=== PATIENT | female | born 1995 | race Caucasian/White ===

== ENCOUNTER 2016-09-29 15:49 | Emergency (ER) | payer SELFPAY ==
[~2016-09-29] VITALS: Ht 160 cm; Wt 55.0 kg
[~2016-09-29 15:49] MED LIST: BACT800T5 PO
[2016-09-29 15:50] VITALS: BP 137/77; PULSE 70; RESP 20; TEMP 98.6; O2SAT 99
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
[2016-09-29 17:11] LABS: AUTOMATED NEUTROPHIL # 2.5 TH/MM3 (1.8-7.7); BASOPHIL % 0.5 % (0.0-2.0); EOSINOPHIL % 0.4 % (0.0-4.0); HEMATOCRIT 42.7 % (35.0-46.0); HEMO FLAGS DIFF FINAL; LYMPH % 45.2 % (9.0-44.0); LYMPHOCYTE # 2.3 TH/MM3 (1.0-4.8); MEAN CELL VOLUME 90.9 FL (80.0-100.0); MEAN CORPUSCULAR HEMOGLOBIN 30.2 PG (27.0-34.0); MEAN CORPUSCULAR HGB CONC 33.2 % (32.0-36.0); MONO % 6.6 % (0.0-8.0); NEUT % 47.3 % (16.0-70.0); PLATELET COUNT 284 TH/MM3 (150-450); RED CELL DISTRIBUTION WIDTH 13.7 % (11.6-17.2); WHITE BLOOD COUNT 5.2 TH/MM3 (4.0-11.0)
[2016-09-29 17:21] LABS: BICARBONATE 25.8 MEQ/L (21.0-32.0); MAGNESIUM 2.2 MG/DL (1.5-2.5); POTASSIUM 3.9 MEQ/L (3.5-5.1)
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
--- NOTE | 2016-09-29 20:19 | RADRPT ---
EXAM DATE/TIME: 09/29/2016 20:09 [place] COMPARISON: No previous studies available for comparison. INDICATIONS : Possible seizure activity. RADIATION DOSE: 29.55 CTDIvol (mGy) MEDICAL HISTORY : None SURGICAL HISTORY : None. ENCOUNTER: Initial ACUITY: 1 day PAIN SCALE: 0/10 LOCATION: cranial TECHNIQUE: Multiple contiguous axial images were obtained of the head. Using automated exposure control and adj ustment of the mA and/or kV according to patient size, radiation dose was kept as low as reasonably a chievable to obtain optimal diagnostic quality images. DICOM format image data is available electro nically for review and comparison. FINDINGS: CEREBRUM: The ventricles are normal for age. No evidence of midline shift, mass lesion, hemorrhage or acute in farction. No extra-axial fluid collections are seen. POSTERIOR FOSSA: The cerebellum and brainstem are intact. The 4th ventricle is midline. The cerebellopontine angle i s unremarkable. EXTRACRANIAL: The visualized portion of the orbits is intact. SKULL: The calvaria is intact. No evidence of skull fracture. CONCLUSION: Negative for an acute process. Curtis Hoover MD FACR on September 29, 2016 at 20:17 Board Certified Radiologist. This report was verified electronically.
[2016-09-29] MEDS ORDERED: DEPO150I IM (20:39)
[2016-09-29 21:47] VITALS: BP 123/58
--- NOTE | 2016-09-30 09:49 | EKG ---
Date Performed: 09/29/2016 Time Performed: 16:13:46 PTAGE: 20 years EKG: Sinus rhythm NONSPECIFIC T-WAVE ABNORMALITY BORDERLINE ECG NO PREVIOUS TRACING DOCTOR: Asif Leonard Interpretating Date/Time 09/30/2016 09:47:12
== END 2016-09-29 21:58 | disposition home or self-care (01) ==
LOC: NEPD 15:49
DX: R56.9 Unspecified convulsions (principal); R94.31 Abnormal electrocardiogram [ECG] [EKG]
CPT/HCPCS: 70450; 80048; 83735; 84703; 85025; 93005; 99285

== ENCOUNTER 2016-10-18 18:18 | Emergency (ER) | payer SELFPAY ==
[~2016-10-18 18:18] MED LIST changes: -BACT800T5 PO; +DEPO150I IM
[2016-10-18 18:22] VITALS: BP 134/63; PULSE 88; RESP 18; TEMP 98.8; O2SAT 99
[2016-10-18] MEDS ORDERED: PENI500T PO (18:43)
[2016-10-18] MEDS ORDERED: PERI0.126 SWISH-SPIT (18:43)
[2016-10-18] MEDS ORDERED: IBUP-232 PO (18:43)
--- NOTE | 2016-10-18 18:43 | PD ---
HPI Chief Complaint: Oral / Dental Pain or Problem Time Seen by Provider: 18:28 Travel History International Travel<30 days: No Contact w/Intl Traveler<30days: No Traveled to known affect area: No History of Present Illness HPI The patient is a 21-year-old female who presents emergency department for dental pain. The patient complains of dental pain located in the left upper aspect of the mouth. The patient states she's had dental difficulties of the last several years, has a filling in the affected tooth. The patient states she has difficulty chewing on the affected side secondary to pain and notes mild swelling along the left upper gumline. She denies any heat or cold sensitivity. The patient states she saw a dentist yesterday, however, was unable to afford the copayment, therefore, was unable to get any prescriptions for the infected tooth. The patient also complains of a rash over the medial aspect the arms bilateral and along the waistline. She denies any pruritus to the affected area and denies any known contact new items or recent change in medications, lotions, or shampoos. The patient denies any shortness of breath or swelling of the tongue. Symptoms are mild, possibly exacerbated by an underlying infection, and there are no current alleviating factors. PFSH Past Medical History Hx Anticoagulant Therapy: No Diabetes: No Diminished Hearing: No Immunizations Current: Yes ?: Not LMP: 09/03/16 Social History Alcohol Use: No Tobacco Use: No Substance Use: No Allergies-Medications (Allergen,Severity, Reaction): Coded Allergies: No Known Allergies (Unverified , 10/18/16) Reported Meds & Prescriptions Reported Meds & Active Scripts Active Reported Depo-Provera Inj (Medroxyprogesterone Inj) 150 Mg/Ml Inj 150 Mg IM Q90D Review of Systems Except as stated in HPI: all other systems reviewed are Neg General / Constitutional: No: Fever HENT: Positive: Dental Difficulties Skin: Positive Rash, No Itching Physical Exam Narrative GENERAL: Awake, alert, nontoxic-appearing 21-year-old female who appears her stated age and is in no acute respiratory distress. SKIN: Focused skin assessment warm/dry. Patient has 2 small erythematous lumps on the left upper extremity, 1 on the right upper extremity that are less than 0.5 cm in diameter, nonblanching. Patient also has 3 discrete similar lesions along the waistline. They do not robert. There is no visible vesicle. HEAD: Atraumatic. Normocephalic. EYES: Pupils equal and round. No scleral icterus. No injection or drainage. ENT: No nasal bleeding or discharge. Mucous membranes pink and moist. Inspection of the dentition reveals that the left upper tooth #[address] a [address] in place. No obvious abscess. NECK: Trachea midline. No JVD. MUSCULOSKELETAL: No obvious deformities. No clubbing. No cyanosis. No edema. NEUROLOGICAL: Awake and alert. No obvious cranial nerve deficits. Motor grossly within normal limits. Normal speech. PSYCHIATRIC: Appropriate mood and affect; insight and judgment normal. Data Data Last Documented VS Vital Signs Date Time Temp Pulse Resp B/P Pulse Ox O2 Delivery O2 Flow Rate FiO2 10/18/16 18:22 98.8 88 18 134/63 99 MDM Medical Decision Making Medical Screen Exam Complete: Yes Emergency Medical Condition: Yes Medical Record Reviewed: Yes Differential Diagnosis Differential diagnosis includes odontalgia, abscess, dental infection, pericoronitis, dermatitis, allergic reaction, hives, chiggers. Narrative Course The patient will be placed on Pen-Vee K and then Peridex for the dental infection, we'll be prescribed ibuprofen for pain. She was provided dental information. Patient is advised to monitor the rash, no acute indication for treatment as there is no pruritus, she is advised to limit detergents and lotions to the affected area. She is advised to follow-up with a dentist. Return if symptoms worsen or progress. Diagnosis Primary Impression: Odontalgia Additional Impression: Rash Patient Instructions: General Instructions Additional Instructions: Medications as directed. Follow-up with a dentist. Follow-up with your primary physician. Return if symptoms worsen or progress. Med/Other Pt SpecificInfo: Prescription(s) given Scripts Chlorhexidine Gluconate (Mouth) Liq (Peridex Liq)0.12% Soln15 Ml SWISH-SPIT BID #473 ML Ref 0 Prov:Antoine Santos MD 10/18/16 Ibuprofen 600 Mg [id number] Mg PO Q6H PRN (Pain/Inflammation) #20 TAB Ref 0 Prov:Antoine Santos MD 10/18/16 Penicillin V Potassium 500 Mg [id number] Mg PO Q6H 10 Days Ref 0 Prov:Antoine Santos MD 10/18/16 Disposition: 01 DISCHARGE HOME Condition: Stable Antoine Santos MD Oct 18, 2016 18:43
== END 2016-10-18 19:00 | disposition home or self-care (01) ==
LOC: PHEFT 18:18
DX: K08.89 Other specified disorders of teeth and supporting structures (principal); K04.7 Periapical abscess without sinus; R21 Rash and other nonspecific skin eruption
CPT/HCPCS: 99283

== ENCOUNTER 2017-02-11 14:17 | Emergency (ER) | payer SELFPAY ==
[~2017-02-11] VITALS: Ht 162.6 cm; Wt 54.5 kg
[~2017-02-11 14:17] MED LIST changes: +IBUP-232 PO; +PENI500T PO; +PERI0.126 SWISH-SPIT
[2017-02-11 14:20] VITALS: BP 102/60; PULSE 79; RESP 16; TEMP 98.6; O2SAT 99
[2017-02-11 15:31] LABS: AUTOMATED NEUTROPHIL # 3.1 TH/MM3 (1.8-7.7); BASOPHIL % 0.6 % (0.0-2.0); EOSINOPHIL % 0.5 % (0.0-4.0); HEMO FLAGS DIFF FINAL; LYMPH % 44.2 % (9.0-44.0); LYMPHOCYTE # 2.7 TH/MM3 (1.0-4.8); MEAN CELL VOLUME 91.6 FL (80.0-100.0); MEAN CORPUSCULAR HEMOGLOBIN 31.1 PG (27.0-34.0); MEAN CORPUSCULAR HGB CONC 33.9 % (32.0-36.0); MONO % 4.8 % (0.0-8.0); NEUT % 49.9 % (16.0-70.0); PLATELET COUNT 252 TH/MM3 (150-450); RED BLOOD COUNT 4.48 MIL/MM3 (4.00-5.30); RED CELL DISTRIBUTION WIDTH 13.6 % (11.6-17.2); WHITE BLOOD COUNT 6.2 TH/MM3 (4.0-11.0)
[2017-02-11] MEDS ORDERED: birth control pills (15:31)
--- NOTE | 2017-02-11 15:40 | PD ---
HPI Chief Complaint: GI Complaint Time Seen by Provider: 15:19 Travel History International Travel<30 days: No Contact w/Intl Traveler<30days: No Traveled to known affect area: No History of Present Illness HPI 21-year-old female presents to the emergency Department with complaint of vomiting since last night after eating pizza. Her family members ate pizza and none of them had any vomiting. She last vomited at approximately 9 AM this morning. Reports subjective fever and chills. Reports continued nausea. Has drinks and Gatorade today without continued vomiting. Denies abdominal pain, diarrhea, dysuria. Reports being on oral contraceptives. Last menstrual period was about 3 weeks ago. Has not taken any medication or turning treatments to alleviate her symptoms. No known relieving or aggravating factors. No known allergies. Does not have an established primary care provider. Denies significant past medical history. No other modifying factors or associated signs and symptoms. PFSH Past Medical History Medical History: Denies Significant Hx Hx Anticoagulant Therapy: No Diabetes: No Diminished Hearing: No Immunizations Current: Yes ?: Not Social History Alcohol Use: No Tobacco Use: No Substance Use: No Allergies-Medications (Allergen,Severity, Reaction): Coded Allergies: No Known Allergies (Unverified , 10/18/16) Reported Meds & Prescriptions Reported Meds & Active Scripts Active Reported [ control pills] Review of Systems Except as stated in HPI: all other systems reviewed are Neg Physical Exam Narrative GENERAL: Well-nourished, well-developed female patient, in no acute distress SKIN: Warm and dry. HEAD: Atraumatic. Normocephalic. EYES: Pupils equal and round. No scleral icterus. No injection or drainage. ENT: Mucosa pink and moist. Airway patent. NECK: Trachea midline. CARDIOVASCULAR: Regular rate and rhythm. No murmur appreciated. RESPIRATORY: No accessory muscle use. Clear to auscultation. Breath sounds equal bilaterally. GASTROINTESTINAL: Abdomen soft, non-tender, nondistended. Hepatic and splenic margins not palpable. Bowel sounds are active 4 quadrants. MUSCULOSKELETAL: No obvious deformities. No clubbing. No cyanosis. No edema. BACK: No CVA tenderness. NEUROLOGICAL: Awake and alert. Oriented 3. No obvious cranial nerve deficits. Motor grossly within normal limits. Normal speech. PSYCHIATRIC: Appropriate mood and affect; insight and judgment normal. Data Data Last Documented VS Vital Signs Date Time Temp Pulse Resp B/P (MAP) Pulse Ox O2 Delivery O2 Flow Rate FiO2 02/11/17 14:20 98.6 79 16 102/60 (74) 99 Room Air Orders Orders Complete Blood Count With Diff (02/11/17 14:33) Comprehensive Metabolic Panel (02/11/17 14:33) Urinalysis - C+S If Indicated (02/11/17 14:33) Lipase (02/11/17 14:33) Ed Urine Pregnancytest Poc (02/11/17 14:33) Ondansetron Odt (Zofran Odt) (02/11/17 15:45) Labs Laboratory Tests Test 02/11/17 14:52 02/11/17 15:55 White Blood Count 6.2 TH/MM3 Red Blood Count 4.48 MIL/MM3 Hemoglobin 13.9 GM/DL Hematocrit 41.0 % Mean Corpuscular Volume 91.6 FL Mean Corpuscular Hemoglobin 31.1 PG Mean Corpuscular Hemoglobin Concent 33.9 % Red Cell Distribution Width 13.6 % Platelet Count 252 TH/MM3 Mean Platelet Volume 7.8 FL Neutrophils (%) (Auto) 49.9 % Lymphocytes (%) (Auto) 44.2 % Monocytes (%) (Auto) 4.8 % Eosinophils (%) (Auto) 0.5 % Basophils (%) (Auto) 0.6 % Neutrophils # (Auto) 3.1 TH/MM3 Lymphocytes # (Auto) 2.7 TH/MM3 Monocytes # (Auto) 0.3 TH/MM3 Eosinophils # (Auto) 0.0 TH/MM3 Basophils # (Auto) 0.0 TH/MM3 CBC Comment DIFF FINAL Differential Comment Blood Urea Nitrogen 12 MG/DL Creatinine 0.60 MG/DL Random Glucose 78 MG/DL Total Protein 7.2 GM/DL Albumin 4.1 GM/DL Calcium Level 8.5 MG/DL Alkaline Phosphatase 50 U/L Aspartate Amino Transf (AST/SGOT) 10 U/L Alanine Aminotransferase (ALT/SGPT) 18 U/L Total Bilirubin 0.4 MG/DL Sodium Level 138 MEQ/L Potassium Level 3.7 MEQ/L Chloride Level 107 MEQ/L Carbon Dioxide Level 24.3 MEQ/L Anion Gap 7 MEQ/L Estimat Glomerular Filtration Rate 124 ML/MIN Lipase 115 U/L Urine Color YELLOW Urine Turbidity HAZY Urine pH 6.5 Urine Specific [place] 1.030 Urine Protein TRACE mg/dL Urine Glucose (UA) NEG mg/dL Urine Ketones NEG mg/dL Urine Occult Blood NEG Urine Nitrite NEG Urine Bilirubin NEG Urine Urobilinogen LESS THAN 2.0 MG/DL Urine Leukocyte Esterase MOD Urine RBC 2 /hpf Urine WBC 6 /hpf Urine Squamous Epithelial Cells 19 /hpf Urine Amorphous Sediment RARE Urine Bacteria FEW /hpf Urine Mucus MANY /lpf Microscopic Urinalysis Comment CULT NOT INDICATED MDM Medical Decision Making Medical Screen Exam Complete: Yes Emergency Medical Condition: Yes Medical Record Reviewed: Yes Differential Diagnosis Gastroenteritis, vomiting, gastritis Narrative Course 21-year-old female with vomiting since last night. Patient is afebrile and nontoxic-appearing. CBC, CMP, lipase, urinalysis, UPT ordered in triage. UPT negative. Zofran ordered. 1638: CBC, CMP, lipase unremarkable. Urinalysis with leukocyte esterase. No reflex urine culture. I'll treat the patient for suspected UTI. Patient was given oral challenge. She has tolerated crackers and Gatorade with no continued vomiting. Keflex and Zofran prescribed for home. Instructed patient to follow up with primary care provider. Patient verbalizes understanding and agreement with treatment plan. Patient is medically cleared and stable for discharge. Discussed reasons to return to the emergency department. Patient agrees with treatment plan. The patients vital signs are stable and the patient is stable for outpatient follow-up and treatment. Patient discharged home, stable and in no acute distress. Diagnosis Primary Impression: UTI (urinary tract infection) Qualified Codes: N39.0 - Urinary tract infection, site not specified Additional Impression: Vomiting Qualified Codes: R11.2 - Nausea with vomiting, unspecified Referrals: [facility] Primary Care Physician Patient Instructions: General Instructions, Urinary Tract Infection in Women ( ED) Departure Forms: Tests/Procedures, Work Release Enter return to work date: Feb 12, 2017 Additional Instructions: Take antibiotics as prescribed and complete full course Drink plenty of fluids Maintain good personal hygiene Follow-up with primary care provider Return to the emergency department immediately with worsening of symptoms Med/Other Pt SpecificInfo: Prescription(s) given Scripts Ondansetron Odt (Zofran Odt) 4 Mg Tab 4 MG SL Q8HR Y for Nausea/Vomiting, #4 TAB 0 Refills Prov: Ioana Parnell 02/11/17 Cephalexin (Keflex) 500 Mg Cap 500 MG PO Q12H for Infection for 5 Days, #10 CAP 0 Refills Prov: Ioana Parnell 02/11/17 Disposition: 01 DISCHARGE HOME Condition: Stable Ioana Parnell Feb 11, 2017 15:40
[2017-02-11] MEDS ORDERED: ONDANSETRON ODT 4 MG TAB PO ONE (15:45)
[2017-02-11 15:47] LABS: ALT (GPT) 18 U/L (10-53); ANION GAP 7 MEQ/L (5-15); AST (GOT) 10 U/L (15-37); BICARBONATE 24.3 MEQ/L (21.0-32.0); BLOOD UREA NITROGEN 12 MG/DL (7-18); CHLORIDE 107 MEQ/L (98-107); GLOMERULAR FILTRATION RATE 124 ML/MIN (>89); POTASSIUM 3.7 MEQ/L (3.5-5.1); SODIUM (NA) 138 MEQ/L (136-145)
[2017-02-11 15:49] LABS: ALKALINE PHOSPHATASE 50 U/L (45-117); TOTAL BILIRUBIN ADULT 0.4 MG/DL (0.2-1.0)
[2017-02-11 16:25] LABS: BACTERIA, URINE FEW /hpf; BLOOD, URINE NEG (NEG); COMMENT (UR) CULT NOT INDICATED; CULTURE IF INDICATED CULT NOT INDICATED; GLUCOSE,URINE NEG (NEG); KETONE, URINE NEG (NEG); MUCUS URINE MANY /lpf (OCC); NITRITE,URINE NEG (NEG); PH, URINE 6.5 (5.0-8.5); SQUAMOUS EPITHELIAL CELL URINE 19 /hpf (0-5); URINE COLOR YELLOW (YELLW/STRAW)
[2017-02-11] MEDS ORDERED: ZOFR4TAB3 SL (16:36)
[2017-02-11] MEDS ORDERED: CEPH-460 PO (16:36)
== END 2017-02-11 16:56 | disposition home or self-care (01) ==
LOC: NEPD 14:17
DX: N39.0 Urinary tract infection, site not specified (principal)
CPT/HCPCS: 80053; 81001; 83690; 84703; 85025; 99285